=== PATIENT | male | born 1990 | race Caucasian/White ===

== ENCOUNTER 2016-07-12 12:36 | Emergency (ER) | payer MEDICAID ==
[~2016-07-12] VITALS: Ht 157.5 cm; Wt 61.2 kg
[2016-07-12 13:15] VITALS: BP 150/78
[2016-07-12] MEDS ORDERED: ONDANSETRON HCL 4 MG/2 ML VIAL IM ONE (13:30)
[2016-07-12] MEDS ORDERED: HYDROmorphone HCL 2 MG/ML VL IM ONE (13:30)
[2016-07-12] MEDS ORDERED: ONDANSETRON HCL 4 MG/2 ML VIAL ONE (13:31)
[2016-07-12] MEDS ORDERED: HYDROmorphone HCL 2 MG/ML VL ONE (13:31)
== END 2016-07-12 15:16 | disposition home or self-care (01) ==
LOC: ER 12:36
DX: S39.012A Strain of muscle, fascia and tendon of lower back, initial encounter (principal); Z88.0 Allergy status to penicillin; X58.XXXA Exposure to other specified factors, initial encounter; Y93.89 Activity, other specified; Y99.8 Other external cause status; Y92.89 Other specified places as the place of occurrence of the external cause
CPT/HCPCS: 72100; 72131; 74176; 96372; 99284; J1170; J2405

== ENCOUNTER 2018-08-13 12:41 | Emergency (ER) | payer SELFPAY ==
[~2018-08-13] VITALS: Ht 160 cm; Wt 68.0 kg
[2018-08-13 16:06] VITALS: BP 147/93
== END 2018-08-13 17:38 | disposition home or self-care (01) ==
LOC: ER 12:48
DX: J02.9 Acute pharyngitis, unspecified (principal); Z88.0 Allergy status to penicillin

== ENCOUNTER 2019-01-04 19:29 | Emergency (ER) | payer MEDICAID ==
[~2019-01-04] VITALS: Ht 160 cm; Wt 63.0 kg
[2019-01-04 20:37] LABS: Basophils # (auto) 0 uL; Basophils % (auto) 0.2 % (0.0-2.0); Eosinophils # (auto) 0.1 uL; Eosinophils % (auto) 0.5 % (0.0-7.0); Hematocrit 46.8 % (41.0-53.0); Hemoglobin 15.8 g/dL (13.5-17.5); Lymphocytes # (auto) 2.6 uL; Lymphocytes % (auto) 12.8 % (10.0-50.0); Mean Corpuscular Hemoglobin 30.3 pg (28.0-32.0); Mean Corpuscular Hgb Conc. 33.7 g/dL (32.0-36.0); Mean Corpuscular Volume 89.9 fL (80.0-100.0); Monocytes # (auto) 1.4 uL; Monocytes % (auto) 6.7 % (0.0-12.0); Neutrophils # (auto) 16.2 uL; Neutrophils % (auto) 79.8 % (37.0-80.0); Nucleated Red Blood Cells % 0.1 %; Platelet Count (auto) 315 10^3/uL (140-450); Red Cell Distribution Width 12.6 % (11.8-14.3); White Blood Cell 20.3 10^3/uL (4.4-10.8)
[2019-01-04 20:59] LABS: INR 0.93 (0.9-1.15); Partial Thromboplastin Time 23.7 sec (23.64-32.05)
[2019-01-04 21:02] LABS: Albumin 4.3 g/dL (3.4-5.0); Calcium 8.2 mg/dL (8.5-10.1); Potassium 3.1 mmol/L (3.5-5.1)
[2019-01-04 21:06] LABS: BUN/Creatinine Ratio 12.1; Bilirubin, Total 0.3 mg/dL (0.2-1.0); Total Protein 7.7 g/dL (6.4-8.2)
[2019-01-04] MEDS ORDERED: TETANUS-DIPTH-ACEL PERTUSSIS 0.5ML SYRG IM ONE (21:15)
[2019-01-04] MEDS ORDERED: MORPHINE SULFATE 4 MG/ML SYR/VIAL IV ONE (21:45)
[2019-01-04] MEDS ORDERED: ONDANSETRON HCL 4 MG/2 ML VIAL IV ONE (21:45)
[2019-01-04] MEDS ORDERED: HYDROmorphone HCL 2 MG/ML VL IV ONE (22:30)
[2019-01-04 23:00] VITALS: BP 136/81
== END 2019-01-05 00:04 | disposition home or self-care (01) ==
LOC: ER 19:31
DX: S82.101A Unspecified fracture of upper end of right tibia, initial encounter for closed fracture (principal); S82.831A Other fracture of upper and lower end of right fibula, initial encounter for closed fracture; S43.491A Other sprain of right shoulder joint, initial encounter; S16.1XXA Strain of muscle, fascia and tendon at neck level, initial encounter; F17.210 Nicotine dependence, cigarettes, uncomplicated; Z88.0 Allergy status to penicillin; V28.4XXA Motorcycle driver injured in noncollision transport accident in traffic accident, initial encounter; Y93.89 Activity, other specified; Y99.8 Other external cause status; Y92.89 Other specified places as the place of occurrence of the external cause
CPT/HCPCS: 29505; 36415; 70450; 72125; 72128; 72131; 72170; 73020; 73560; 73590; 80053; 85025; 85610; 85730; 90471; 90715; 96374; 96375; 99284; J1170; J2270; J2405; J7030

== ENCOUNTER 2019-02-15 10:15 | Emergency (ER) | payer MEDICAID ==
[~2019-02-15] VITALS: Ht 172.7 cm; Wt 74.8 kg
[2019-02-15 11:23] LABS: Basophils # (auto) 0 uL; Basophils % (auto) 0.3 % (0.0-2.0); Eosinophils # (auto) 0.1 uL; Eosinophils % (auto) 0.4 % (0.0-7.0); Hematocrit 41.2 % (41.0-53.0); Hemoglobin 13.8 g/dL (13.5-17.5); Lymphocytes # (auto) 1.2 uL; Mean Corpuscular Hemoglobin 30.3 pg (28.0-32.0); Mean Corpuscular Hgb Conc. 33.4 g/dL (32.0-36.0); Mean Corpuscular Volume 90.6 fL (80.0-100.0); Monocytes # (auto) 0.7 uL; Monocytes % (auto) 5.3 % (0.0-12.0); Neutrophils # (auto) 11.4 uL; Platelet Count (auto) 368 10^3/uL (140-450); Red Blood Cells 4.55 10^6/uL (4.5-5.90); Red Cell Distribution Width 13.7 % (11.8-14.3); White Blood Cell 13.4 10^3/uL (4.4-10.8)
[2019-02-15 11:55] LABS: Albumin 4.1 g/dL (3.4-5.0); Potassium 3.5 mmol/L (3.5-5.1)
[2019-02-15 11:59] LABS: BUN/Creatinine Ratio 10.1; Bilirubin, Total 0.3 mg/dL (0.2-1.0); Total Protein 7.8 g/dL (6.4-8.2)
[2019-02-15] MEDS ORDERED: KETOROLAC TROMETH 30 MG/ML 1ML VIAL IV ONE (13:15)
[2019-02-15] MEDS ORDERED: SODIUM CHLORIDE 0.9% 1,000 ML IV ONE (13:15)
[2019-02-15] MEDS ORDERED: ONDANSETRON HCL 4 MG/2 ML VIAL IV ONE (13:15)
[2019-02-15] MEDS ORDERED: TAMSULOSIN HYDROCHLORIDE 0.4 MG CAP PO ONE (13:15)
[2019-02-15 14:30] VITALS: BP 142/80
== END 2019-02-15 14:46 | disposition home or self-care (01) ==
LOC: EDBD 10:15 → ER 10:18
DX: N20.2 Calculus of kidney with calculus of ureter (principal); F17.210 Nicotine dependence, cigarettes, uncomplicated; R42 Dizziness and giddiness; R51 Headache; Z88.0 Allergy status to penicillin
CPT/HCPCS: 36415; 74176; 80053; 81002; 83690; 85025; 96374; 96375; 99284; J1885; J2405; J7030

== ENCOUNTER 2019-12-18 16:43 | Emergency (ER) | payer MEDICAID ==
[~2019-12-18] VITALS: Ht 165.1 cm; Wt 70.3 kg
[2019-12-18] MEDS ORDERED: MORPHINE SULFATE 4 MG/ML SYR/VIAL IV ONE (17:00)
[2019-12-18] MEDS ORDERED: ONDANSETRON HCL 4 MG/2 ML VIAL IV ONE (17:00)
[2019-12-18 17:52] LABS: Basophils # (auto) 0.1 10 ^3/uL (0-0.2); Basophils % (auto) 0.6 % (0.0-2.0); Eosinophils # (auto) 0.2 10 ^3/uL (0-0.8); Eosinophils % (auto) 1.6 % (0.0-7.0); Hematocrit 51.4 % (41.0-53.0); Hemoglobin 17.4 g/dL (13.5-17.5); Lymphocytes # (auto) 2.1 10 ^3/uL (0.4-5.4); Lymphocytes % (auto) 14.4 % (10.0-50.0); Mean Corpuscular Hgb Conc. 33.8 g/dL (32.0-36.0); Mean Corpuscular Volume 91.7 fL (80.0-100.0); Monocytes # (auto) 1.5 10 ^3/uL (0-1.3); Monocytes % (auto) 10.3 % (0.0-12.0); Neutrophils # (auto) 10.7 10 ^3/uL (1.6-8.6); Neutrophils % (auto) 73.1 % (37.0-80.0); Nucleated Red Blood Cells % 0.1 %; Platelet Count (auto) 335 10^3/uL (140-450); Red Cell Distribution Width 13.3 % (11.8-14.3); White Blood Cell 14.6 10^3/uL (4.4-10.8)
[2019-12-18 18:05] LABS: INR 0.96 (0.9-1.15); Partial Thromboplastin Time 25.8 sec (23.64-32.05)
[2019-12-18 18:06] LABS: Albumin 4.3 g/dL (3.4-5.0); Anion Gap 4 (5-15); Blood Urea Nitrogen 15 mg/dL (7-18); Calcium 8.9 mg/dL (8.5-10.1); Carbon Dioxide 25 mmol/L (21-32); Chloride 110 mmol/L (98-107); Glucose 99 mg/dL (74-106); Potassium 3.8 mmol/L (3.5-5.1); Sodium 139 mmol/L (136-145)
[2019-12-18 18:13] LABS: Alanine Aminotransferase 40 U/L (16-61); Alkaline Phosphatase 93 U/L (45-117); Aspartate Aminotransferase 24 U/L (15-37); BUN/Creatinine Ratio 13.6; Bilirubin, Total 0.4 mg/dL (0.2-1.0); GFR African American 102 mL/min; GFR Non-African American 84 mL/min; Total Protein 8.1 g/dL (6.4-8.2)
[2019-12-18 21:38] VITALS: BP 143/81
== END 2019-12-18 21:43 | disposition home or self-care (01) ==
LOC: ER 16:43
DX: R07.89 Other chest pain (principal); F17.210 Nicotine dependence, cigarettes, uncomplicated; Z88.0 Allergy status to penicillin
CPT/HCPCS: 36415; 71046; 80053; 84484; 85025; 85610; 85730; 93005

== ENCOUNTER 2024-09-07 19:51 | Emergency (ER) | payer MEDICAID, OTHER ==
[~2024-09-07] VITALS: Ht 157.5 cm; Wt 75.8 kg
[2024-09-08] MEDS ORDERED: AUG875T PO (00:37)
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
[2024-09-08 00:56] VITALS: BP 142/80; PULSE 95; RESP 18; TEMP 98.3; O2SAT 95
== END 2024-09-08 00:59 | disposition home or self-care (01) ==
LOC: ER 19:51
DX: S81.011A Laceration without foreign body, right knee, initial encounter (principal); F17.210 Nicotine dependence, cigarettes, uncomplicated; Z79.899 Other long term (current) drug therapy; Z79.1 Long term (current) use of non-steroidal anti-inflammatories (NSAID); Z88.0 Allergy status to penicillin; V29.99XA Rider (driver) (passenger) of other motorcycle injured in unspecified traffic accident, initial encounter; Y93.89 Activity, other specified; Y92.89 Other specified places as the place of occurrence of the external cause; Y99.8 Other external cause status
CPT/HCPCS: 12002; 73562; 99283; J2003

== ENCOUNTER 2024-09-15 10:19 | Emergency (ER) | payer MEDICAID, OTHER ==
[~2024-09-15] VITALS: Ht 157.5 cm; Wt 76.0 kg
[~2024-09-15 10:19] MED LIST: AUG875T PO
[2024-09-15 10:30] VITALS: BP 138/86; TEMP 98
[2024-09-15 10:34] VITALS: PULSE 86
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
[2024-09-15 11:01] LABS: Basophils # (auto) 0 10 ^3/uL (0-0.2); Basophils % (auto) 0.3 % (0.0-2.0); Eosinophils # (auto) 0.1 10 ^3/uL (0-0.8); Eosinophils % (auto) 0.6 % (0.0-7.0); Hematocrit 51.2 % (41.0-53.0); Hemoglobin 17.7 g/dL (13.5-17.5); Lymphocytes # (auto) 1.8 10 ^3/uL (0.4-5.4); Lymphocytes % (auto) 20.7 % (10.0-50.0); Mean Corpuscular Hemoglobin 29.2 pg (28.0-32.0); Mean Corpuscular Hgb Conc. 34.5 g/dL (32.0-36.0); Mean Corpuscular Volume 84.5 fL (80.0-100.0); Monocytes # (auto) 0.7 10 ^3/uL (0-1.3); Monocytes % (auto) 8.1 % (0.0-12.0); Neutrophils # (auto) 6.2 10 ^3/uL (1.6-8.6); Neutrophils % (auto) 70.3 % (37.0-80.0); Nucleated Red Blood Cells % 0.1 %; Platelet Count (auto) 308 10^3/uL (140-450); Red Blood Cells 6.06 10^6/uL (4.5-5.90); Red Cell Distribution Width 12.9 % (11.8-14.3); White Blood Cell 8.8 10^3/uL (4.4-10.8)
[2024-09-15 11:17] LABS: Alanine Aminotransferase 17 U/L (7-40); Alkaline Phosphatase 66 U/L (46-116); Anion Gap 9 (5-15); Aspartate Aminotransferase 19 U/L (13-40); BUN/Creatinine Ratio 10.3 (10.0-20.0); Bilirubin, Total 0.5 mg/dL (0.2-1.0); Blood Urea Nitrogen 11 mg/dL (9-23); Carbon Dioxide 25 mmol/L (20-31); Chloride 106 mmol/L (98-107); Glucose 107 mg/dL (74-106); Potassium 3.9 mmol/L (3.5-5.1); Sodium 140 mmol/L (136-145); Total Protein 7.8 g/dL (5.7-8.2)
--- NOTE | 2024-09-15 11:17 | DVH ---
EXAM: XY CHEST PORTABLE Indication: sob, dizzy Technique: Single frontal view of the chest was obtained Comparison: None FINDINGS: Lines and Tubes: None Lungs: No focal consolidation. Pleura: No effusion. No pneumothorax. Cardiomediastinal contours: Unremarkable Bones: No acute osseous abnormality. IMPRESSION: No acute cardiopulmonary disease.
[2024-09-15] MEDS ORDERED: ALBU108A5 IN (14:39)
[2024-09-15] MEDS ORDERED: SODIUM CHLORIDE 0.9% 1,000 ML IV ONE (14:45)
[2024-09-15] MEDS ORDERED: IPRATROPIUM BROM 0.5 MG/2.5ML INH SOL NEB ONE (14:45)
[2024-09-15] MEDS ORDERED: ALBUTEROL SULF 2.5 MG/0.5ML(0.5%) NEB SOLN NEB ONE (14:45)
[2024-09-15 15:07] VITALS: RESP 14; O2SAT 98
[2024-09-15] MEDS: ALBUTEROL SULF 2.5 MG/0.5ML(0.5%) NEB SOLN ONE (15:07)
[2024-09-15] MEDS: IPRATROPIUM BROM 0.5 MG/2.5ML INH SOL ONE (15:07)
--- NOTE | 2024-09-16 08:22 | ECG ---
[facility] Test Date: 2024-09-15 Test Time: 10:34:48 Pat Name: ANDREI SÁNCHEZ Department: ER Room: Gender: M [employer]ometric[employer] Experimentalist: [place] : 1990 Requested By: HUGO GAMINO Order Number: [id number] Reading MD: Willam العلي Measurements Intervals [place] Rate: 86 P: 41 OR: 166 QRS: 111 QRSD: 108 T: 23 QT: 366 QTc: 438 Interpretive Statements Sinus rhythm Probable RVH w/ secondary repol abnormality Electronically Signed On 09-17-2024 17:07:50 PDT by Willam العلي Please click the below link to view image of tracing.
== END 2024-09-15 16:43 | disposition home or self-care (01) ==
LOC: ER 10:19
DX: R06.02 Shortness of breath (principal); R42 Dizziness and giddiness; R00.2 Palpitations; F17.210 Nicotine dependence, cigarettes, uncomplicated; I10 Essential (primary) hypertension; Z96.651 Presence of right artificial knee joint
CPT/HCPCS: 36415; 71045; 80053; 83880; 84484; 85025; 85379; 93005; 94640